=== PATIENT | male | born 1990 | race Caucasian/White ===

== ENCOUNTER 2017-04-27 12:28 | Emergency (ER) | payer SELFPAY ==
[~2017-04-27] VITALS: Ht 185.4 cm; Wt 71.4 kg
[~2017-04-27 12:28] MED LIST: BUSPIRONE HCL15 MG PO; LEXAPRO10 MG PO; SAPHRIS5 MG SL; abilify; lexapro
[2017-04-27] MEDS ORDERED: PREDNISONE20 MG PO (14:26)
[2017-04-27] MEDS ORDERED: PROAIR HFA8.5 GM IH (14:31)
[2017-04-27 14:51] VITALS: BP 110/78
== END 2017-04-27 14:53 | disposition home or self-care (01) ==
LOC: EME 12:28
DX: J40 Bronchitis, not specified as acute or chronic (principal); F17.210 Nicotine dependence, cigarettes, uncomplicated
CPT/HCPCS: 71020; 94640; 99281; 99284; J7512